=== PATIENT | female | born 1960 | race Two or more races ===

== ENCOUNTER 2019-10-20 12:29 | Outpatient (CLI) | payer OTHER ==
[~2019-10-20 12:29] MED LIST: CELEBREX100 MG PO; CIPRO500 MG; NAPR500T14; NORFLEX100 MG PO
== END 2019-10-20 12:30 | disposition home or self-care (01) ==
LOC: NUCLEAR 12:29
PROVIDERS: ATTEND Obstetrics & Gynecology Gynecology
DX: M81.0 Age-related osteoporosis without current pathological fracture (principal)

== ENCOUNTER 2020-11-04 08:59 | Emergency (ER) | payer OTHER ==
[~2020-11-04] VITALS: Ht 165.1 cm; Wt 81.6 kg
[2020-11-04] MEDS ORDERED: ATACAND HCT 321 EACH (09:20)
[2020-11-04] MEDS ORDERED: KETO10TA2 PO (11:04)
== END 2020-11-04 12:58 | disposition home or self-care (01) ==
LOC: ER 08:59
DX: S90.02XA Contusion of left ankle, initial encounter (principal); W10.8XXA Fall (on) (from) other stairs and steps, initial encounter; Y93.01 Activity, walking, marching and hiking; Y92.018 Other place in single-family (private) house as the place of occurrence of the external cause; Y99.8 Other external cause status